=== PATIENT | female | born 1965 | race African-American/Black ===

== ENCOUNTER → 2019-01-11 | Outpatient (CLI) | payer OTHER ==
[~2019-01-11] MED LIST: FAMO-63 PO
--- NOTE | 2019-01-11 11:17 | RAD ---
DATE: 01/11/2019 EXAM: MAMMO RAGHAVENDRA SCREENING BILATERAL HISTORY: Routine screening COMPARISON: Baseline study This study was interpreted with the benefit of Computerized Aided Detection (CAD). Breast Density: HETERO The breast parenchyma is heterogenously dense, which could reduce sensitivity of mammography. Breast parenchyma level C. FINDINGS: 2-D and 3-D tomosynthesis imaging was performed in CC and MLO projections. No breast mass or architectural distortion is evident. Benign type calcifications are noted. There are tiny radiopacities in both axillary regions most likely representing deodorant artifacts. No suspicious microcalcifications are evident. Axillary lymph nodes of borderline size are noted. They demonstrate normal fatty crow. IMPRESSION: There is no mammographic evidence of malignancy in either breast. BI-RADS CATEGORY: 2 BENIGN FINDING(S) RECOMMENDED FOLLOW-UP: 12M 12 MONTH FOLLOW-UP PQRS compliance statement: Patient information was entered into a reminder system with a target due date for the next mammogram. Mammography is a sensitive method for finding small breast cancers, but it does not detect them all and is not a substitute for careful clinical examination. A negative mammogram does not negate a clinically suspicious finding and should not result in delay in biopsying a clinically suspicious abnormality. "Our facility is accredited by the [employer] Mammography Program."
== END | disposition home or self-care (01) ==
LOC: MAMMO 10:35
PROVIDERS: ATTEND Nurse Practitioner Adult Health
DX: Z12.31 Encounter for screening mammogram for malignant neoplasm of breast (principal); R59.0 Localized enlarged lymph nodes
CPT/HCPCS: 77063; 77067

== ENCOUNTER 2019-02-08 22:40 | Emergency (ER) | payer OTHER ==
[~2019-02-08] VITALS: Ht 149.9 cm; Wt 80.7 kg
--- NOTE | 2019-02-08 22:51 | PHYS DOC ---
Past History Past Medical History: Asthma, Hypertension Past Surgical History: Smoking: Quit Greater Than 1 Year Alcohol Use: None Drug Use: None Adult General Chief Complaint Chief Complaint: Chest pain HPI HPI Patient is a 54 year old female who presents with chest pain and palpitations. At 1600 tonight, she states that she felt "pulsing" in her head, neck, and chest that was more prominent when laying flat. This began to increase with time and eventually progressed to shortness of breath and left sided chest "heaviness" at around 1900. At that time she noticed radiation of the heaviness to her mid- upper back, left arm and face. These symptoms were worsened with exertion, non- pleuritic, and remained positional with increased severity when laying flat. She did take some Tylenol without relief. Patient denied feeling diaphoretic, any nausea or vomiting, weakness, or paresthesias during this time frame. At this time she is chest pain free but feels that she can still feel some of the palpitations. Patient states that in 2004 she underwent stress testing that was normal at that time. Review of Systems Review of Systems Constitutional: Denies fever or chills [] Eyes: Denies blurred vision or diplopia [] HENT: Reports sensation of pulsation felt in her head, radiation of chest heaviness to her neck and face [] Respiratory: Reports shortness of breath and orthopnea. Denies cough or hemoptysis [] Cardiovascular: Reports chest pain and palpitations [] GI: Denies abdominal pain, nausea, or vomiting[] : Denies dysuria or hematuria [] Musculoskeletal: Reports radiation of chest heaviness to left arm, denies weak ness [] Integument: Denies rash or skin lesions [] Neurologic: Denies headache, focal weakness, dizziness or sensory changes [] Complete review of systems found to be within normal limits, except as documented in this note. Physical Exam Physical Exam Constitutional: Well developed, well nourished, no acute distress, non-toxic appearance. [] HENT: Normocephalic, atraumatic Eyes: Conjunctiva normal, no discharge. [] Neck: Normal range of motion, no tenderness, supple Cardiovascular: Heart rate regular rhythm, no murmur [] Lungs & Thorax: Bilateral breath sounds clear to auscultation [] Abdomen: Soft, no tenderness Skin: Warm, dry, no erythema, no rash. [] Extremities: No tenderness, ROM intact, no edema. [] Neurologic: Alert and oriented X 3, normal motor function, normal sensory function, no focal deficits noted. [] Psychologic: Affect normal, judgement normal, mood normal. [] EKG EKG @2251 NSR at 83bpm, NO ST elevation, PVC noted, low voltage QRS Radiology/Procedures Radiology/Procedures Procedure: Chest PA and Lateral X-Ray (preliminary interpretation by ED physician) No acute cardiopulmonary process. [] Course & Med Decision Making Course & Med Decision Making Pertinent Labs and Imaging studies reviewed. (See chart for details) Pt is a 54 year old female who presents with concerns for chest pain, shortness of breath and palpitations that she had experienced earlier in the evening. Upon arrival to the ED, her chest pain and shortness of breath had abated however she felt her palpitations were still present. EKG showed no evidence of coronary ischemia. Initial and followup troponin negative. Chest x-ray showed no evidence of acute cardio-pulmonary process. CMP showed mild hypokalemia at 3.3. CBC within normal limits. D-dimer negative. HEART score calculated at 3 and determined to be low-risk. Discussed with patient the option of admission for further cardiac workup with likely stress test vs. outpatient followup pending repeat troponin (found to be negative). As she has an appointment scheduled tomorrow with her PCP and feels reassured by her results tonight, she feels comfortable discharging home and agrees to outpatient followup. Patient stable for discharge with outpatient follow-up with PCP. Discussed findings and plan with patient, who acknowledge understanding and agreement. [] Dragon Disclaimer Dragon Disclaimer This electronic medical record was generated, in whole or in part, using a voice recognition dictation system. Departure Departure: Impression: Primary Impression: Chest pain Disposition: HOME, SELF-CARE Condition: STABLE Referrals: VALERIE IBARRA MD (PCP) Patient Instructions: Chest Pain (Nonspecific), [id number] Scripts Famotidine (PEPCID) 20 Mg Tablet 1 TAB PO BID for GASTRITIS, #30 TAB Prov: OSORIO JERONIMO DO 02/09/19 HEART Score for Chest Pain PTs The HEART Score for CP Pts HEART Score for Chest Pain: HEART Score for Chest Pain Response (Comments) Value History Moderately Suspicious 1 ECG Normal 0 Age >45 - < 65 1 Risk Factors 1 or 2 Risk Factors 1 Troponin < Normal Limit 0 Total 3 Risk Factors: Risk Factors: DM, Current or recent (<one month) smoker, HTN, HLP, family history of CAD, obesity. Risk Scores: Score 0 - 3: 2.5% MACE over next 6 weeks - Discharge Home Score 4 - 6: 20.3% MACE over next 6 weeks - Admit for Clinical Observation Score 7 - 10: 72.7% MACE over next 6 weeks - Early Invasive Strategies Problem Qualifiers Primary Impression: Chest pain Chest pain type: unspecified Qualified Codes: R07.9 - Chest pain, unspecified OSORIO JERONIMO DO February 08, 2019 22:51
[2019-02-08] MEDS: IV NORMAL SALINE 1,000ML 1,000 ML IV ONE (23:27)
[2019-02-08] MEDS: ASPIRIN 325 MG TABLET PO ONE (23:29)
[2019-02-08 23:30] LABS: BASO % 1 % (0-3); EOS # 0.2 x10^3/uL (0.0-0.7); EOS % 3 % (0-3); HEMATOCRIT 39.4 % (36.0-47.0); HEMOGLOBIN 13.1 g/dL (12.0-15.5); LYMPH # 2.1 x10^3/uL (1.0-4.8); LYMPH % 29 % (24-48); MEAN CORPUSCULAR HEMOGLOBIN 31 pg (25-35); MEAN CORPUSCULAR HGB CONC 33 g/dL (31-37); MEAN CORPUSCULAR VOLUME 93 fL (79-100); MONO # 0.6 x10^3/uL (0.0-1.1); MONO % 8 % (0-9); NEUT # 4.4 x10^3uL (1.8-7.7); NEUT % 59 % (31-73); PLATELET COUNT 225 x10^3/uL (140-400); RED BLOOD COUNT 4.27 x10^6/uL (3.50-5.40); RED CELL DISTRIBUTION WIDTH 12.9 % (11.5-14.5); WHITE BLOOD COUNT 7.4 x10^3/uL (4.0-11.0)
[2019-02-08 23:46] LABS: ALBUMIN 3.6 g/dL (3.4-5.0); ALBUMIN/GLOBULIN RATIO 0.8 (1.0-1.7); CALCIUM 8.5 mg/dL (8.5-10.1); CREATININE 0.8 mg/dL (0.6-1.0); GFR 90.4; MAGNESIUM 1.9 mg/dL (1.8-2.4); POTASSIUM 3.3 mmol/L (3.5-5.1); TOTAL BILIRUBIN 0.5 mg/dL (0.2-1.0); TOTAL PROTEIN 8.4 g/dL (6.4-8.2)
--- NOTE | 2019-02-09 00:03 | EKG ---
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
[2019-02-09] MEDS ORDERED: FAMO-63 PO (01:29)
[2019-02-09] MEDS: FAMOTIDINE 20 MG/2 ML VIAL IVP ONE (01:43)
[2019-02-09] MEDS: LIDO:MAALOX 1:1 20 ML SINGLE DOSE. PO ONE (01:43)
[2019-02-09 01:46] VITALS: BP 113/75
--- NOTE | 2019-02-09 01:56 | RAD ---
CHEST PA LATERAL CLINICAL INDICATION: chest pain, palpitations COMPARISON: None FINDINGS: Heart is normal in size. Lungs are clear. No pneumothorax or pleural effusion. Visualized bony thorax within normal limits. IMPRESSION: No acute pulmonary process." Electronically signed by: Donovan Mcelroy DO (02/09/2019 1:52 AM) [facility]
== END 2019-02-09 02:02 | disposition home or self-care (01) ==
LOC: ER 22:40
DX: R07.89 Other chest pain (principal); J45.909 Unspecified asthma, uncomplicated; I10 Essential (primary) hypertension; Z87.891 Personal history of nicotine dependence
CPT/HCPCS: 36415; 71046; 80053; 82553; 83690; 83735; 83880; 84484; 85025; 85379; 85610; 85730; 93005; 96374; 99285; J3490; J7030

== ENCOUNTER → 2019-02-23 | Outpatient (CLI) | payer OTHER ==
[2019-02-09 01:46] VITALS: BP 113/75
--- NOTE | 2019-02-23 16:15 | RAD ---
INDICATION: Hyperthyroidism COMPARISON: None. TECHNIQUE: Grayscale and color ultrasound images obtained of the thyroid. FINDINGS: Right Lobe: 42 x 15 x 14 mm. Left Lobe: 49 x 17 x 13 mm. 2 mm hypoechoic nodule within the right side of the isthmus as well as right lower lobe of thyroid. There is some heterogeneity seen of the thyroid. The right side of the neck there is a prominent lymph node identified measuring 27 x 6 mm. There are several additional mildly prominent lymph nodes seen including at the left side of the neck. IMPRESSION: There are couple of tiny thyroid nodules. There is some heterogeneity of the thyroid. Heterogeneity can be seen with causes such as edema or fibrosis. Causes such as thyroiditis are within the differential but nonspecific appearance. There are some scattered prominent lymph nodes within the neck. Could be reactive in nature but follow-up could be obtained to ensure no growth to exclude less common neoplastic causes. Electronically signed by: Feng Hagen MD (02/23/2019 4:12 PM) [facility]
== END | disposition home or self-care (01) ==
LOC: US 14:10
PROVIDERS: ATTEND Nurse Practitioner Adult Health
DX: E04.2 Nontoxic multinodular goiter (principal)
CPT/HCPCS: 76536